=== PATIENT | male | born 1965 | race Caucasian/White ===

== ENCOUNTER 2017-02-27 10:29 | Day surgery (SDC) | payer MEDICARE, OTHER ==
--- NOTE | ~2017-02-27 | CN ---
Consultation Report [facility] [address] [place]. [address] NAME: SUDHEER ENCARNACION : 69 STATUS : [facility]#: [id number] AGE: 51 ADM/REG DATE : 02/27/17 MR#: [id number] REPORT SERV DATE: 02/28/17 DICTATED BY: VIDHI HUGHES DATE: 02/27/17 REPORT STATUS : Draft TRANSCRIBED BY: FRANKY DATE: 02/27/[address] CARLO MARTINEZ AT [facility]: THANK YOU FOR REQUESTING MY OPINION REGARDING EVALUATION AND MANAGEMENT OF MR. SUDHEER ENCARNACION' RIGHT LOWER LOBE AIRSPACE OPACITY. MR. ENCARNACION IS AN EXTREMELY PLEASANT, HIV POSITIVE AND HEP B POSITIVE GENTLEMAN WITH CD4 COUNT OF 1145 AND UNDETECTABLE VIRAL LOAD, WHO PRESENTS TO [facility] WITH AN ABNORMAL CT SCAN OF THE CHEST. THE PATIENT WAS UNDERGOING A WORKUP FOR LIVER AND KIDNEY DISEASE GIVEN HIS RISK FACTORS AND MEDICATIONS. DURING THIS PROCESS, HE HAD AN INCIDENTAL FINDING OF AN AIRSPACE OPACITY IN THE RIGHT LOWER LOBE, AND SUBSEQUENT CT SCAN OF THE CHEST PERFORMED ON 02/22/2017 DEMONSTRATED A 4.1 X 3.2 SOLID MASS-LIKE CONSOLIDATION ALONG THE RIGHT MAJOR FISSURE, DOME OF THE DIAPHRAGM. FINDINGS WERE SPECULATED TO EITHER BE FROM A FUNGAL BACTERIAL PRIMARY LUNG CANCER OR METASTATIC DISEASE, A PULMONARY MEDICINE CONSULTATION FOR NAVIGATIONAL BRONCHOSCOPY, BAL AND BIOPSY WERE RECOMMENDED. OTHER INCIDENTAL FINDINGS, INCLUDING CHOLELITHIASIS AND NEPHROLITHIASIS. THE PATIENT STATES THAT HE HAS NO SIGNIFICANT SHORTNESS OF BREATH. HE IS AT BASELINE. HE DOES HAVE TYPICAL EXERTIONAL SHORTNESS OF BREATH, WELL LOCALIZED TO THE CHEST, NONRADIATING, AND ALLEVIATED BY REST. DATE OF CONSULTATION: 02/27/2017 REVIEW OF SYSTEMS: A detailed 14-point review of systems was completed. Pertinent positives and negatives are listed above. PAST MEDICAL HISTORY: 1. Negative PPD on 01/20/2017. 2. Toxic status IgG negative in 2000. 3. RPR, nonreactive in 11/2012, GC negative in 11/2012, HCV antibody negative in 10/2010. 4. HIV infection with CD4 count as stated above. 5. HAART therapy including ATV/r/ABC/3TC. 6. Chronic type B viral infection with 3TC resistance based on virologic failure - failed TDF therapy due to renal insufficiency, on entecavir and adefovir. 7. Hyperlipidemia. 8. 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 9. Allergic rhinitis. 10.Bipolar disorder. 11.Generalized anxiety disorder. 12.Restless legs syndrome. PAST SURGICAL HISTORY: Status post rectal cancer removal. Consultation Report [facility] [id number] [place]. [address] NAME: USDHEER ENCARNACION : [birth year] STATUS : [facility]#: [id number] AGE: 51 ADM/REG DATE : 02/27/17 MR#: [id number] REPORT SERV DATE: 02/28/17 DICTATED BY: VIDHI HUGHES DATE: 02/27/17 REPORT STATUS : Draft TRANSCRIBED BY: FRANKY DATE: 02/27/17 ALLERGIES: ATAZANAVIR AND EMTRICITABINE AND TENOFOVIR. HOME MEDICATIONS: Reviewed and located in the paper chart. The patient is notably on clindamycin. FAMILY HISTORY: Diabetes. SOCIAL HISTORY: The patient lives in [place], but receives most of his care at [facility] at the [facility]. He had contracted HIV with unprotected MSM contact. The patient currently lives with his partner for many years. He is a disabled, but was prior worked as a counter waitress/waiter. He smokes at least half pack per week but has smoked for many years. He denies any significant alcohol or illicit drug abuse. PHYSICAL EXAMINATION: VITAL SIGNS: Reviewed and located in the paper chart. GENERAL: Acute distress, able to communicate in full paragraphs at a time. HEENT: Normocephalic and atraumatic. Pupils are equal, round, and reactive to light and accommodation. Posterior oropharynx is clear. NECK: No JVD. No LAD. Trachea midline. CARDIOVASCULAR: Regular rate and rhythm. S1 and S2 present. LUNGS: Coarse bilateral breath sounds. No end-expiratory wheezes. ABDOMEN: Nontender. Nondistended. Soft. Positive bowel sounds. EXTREMITIES: No clubbing, cyanosis, or edema. SKIN: No new rashes, lesions, or ulcers. PSYCHIATRIC: Alert and oriented x3. Appropriate mood and affect. Appropriate insight and judgment. NEUROLOGIC: 5/5 strength in upper and lower extremities. Cranial nerves 2 through 12 intact. Gait not tested. DTRs not performed. DIAGNOSTIC STUDIES: 1. CT scan of the chest performed on 02/22/2017 demonstrated of the right lower lobe solid appearing 4.1 x 3.2 mass involving the right major fissure, dome of the diaphragm, and areas of consolidation along the right lower lobe bronchi. Findings may represent an infection, primary lung cancer metastatic disease. 2. Cholelithiasis. 3. Nephrolithiasis. This CT scan was personally reviewed by me and I agree with the above interpretation. ASSESSMENT AND PLAN: Mr. Sudheer Encarnacion is an extremely pleasant 51-year-old gentleman with a significant past medical history of heavy tobacco abuse, hepatitis B active infection, and HIV positive, most recent CD4 count documented 1145 and anal squamous cell carcinoma, who presents to [facility] for formal evaluation of a right lower lobe airspace opacity. The patient was undergoing ultrasound for his kidney and liver disease and was found to have suspicious airspace opacity. Subsequent CT scan on 02/22/2017 confirmed a right lower lobe solid 4.1 x 3.2 cm mass. This represents to me more likely an airspace infiltrate or mass- Consultation Report [address] [address] NAME: SUDHEER ENCARNACION : 69 STATUS : [facility] PAT#: [id number] AGE: 51 ADM/REG DATE : 02/27/17 MR#: [id number] REPORT SERV DATE: 02/28/17 DICTATED BY: VIDHI HUGHES DATE: 02/27/17 REPORT STATUS : Draft TRANSCRIBED BY: MODCornel DATE: 02/27/17 like consolidation. The patient has no significant pulmonary complaints. The differential diagnosis could represent a malignant tumor or metastatic disease from his prior anal cell carcinoma or more likely an atypical infection or aspiration event. The patient has been placed on clindamycin prior to the procedure. At this point, we discussed in detail potential options for culture and biopsy including CT- guided needle biopsy, thoracic surgical biopsy, and EBUS and navigation bronchoscopy. After careful discussion of the risks, benefits, and alternatives to each of these procedures, we agreed to proceed forward with EBUS and navigation bronchoscopy. The patient is aware that the procedure is associated with potential life-threatening risks, including lung collapse, respiratory failure, and even . Given the location of the abnormality, this may be a difficult navigation bronchoscopy based on its position adjacent to the dome of the diaphragm as well as its peripheral nature. The patient would also likely be a difficult CT guided needle biopsy given its medial component abutting the medial aspect of the dome of the diaphragm. Nonetheless, the patient agreed to proceed forward. RECOMMENDATIONS: A summary of my recommendations are as follows: 1. Proceed with EBUS and navigation bronchoscopy for pathologic samples and cultures. 2. Follow up with Dr. Richards in the clinic. 3. Follow up with Dr. Martinez at [facility]. Thank you for allowing us to participate in Mr. Encarnacion' care. JAYNE/FRANKY Vidhi Hughes M.D. / [id number] CC: Mil Hayes
--- NOTE | ~2017-02-27 | EGD ---
EGD REPORT [facility] [address] [address] NAME: SUDHEER ENCARNACION : 69 STATUS : [facility]#: [id number] AGE: 51 ADM/REG DATE : 02/27/17 MR#: [id number] REPORT SERV DATE: 02/27/17 DICTATED BY: ADONAY HUGHES DATE: 02/27/17 REPORT STATUS : Draft TRANSCRIBED BY: [facility] DATE: 02/27/17 Pulmonology Patient Name: Sudheer Encarnacion Procedure Date: 02/27/2017 12:50 PM Date of : 1965 Attending MD: BLU HUGHES MD Procedure Date No Time: 02/27/2017 Procedure: EBUS/JAZZY BRONCHOSCOPY Indications: Chronic Hepatitis B and HIV Providers: BLU HUGHES MD Referring MD: Kenzie Martinez Medicines: Lidocaine 2% 20 mL Complications: No immediate complications Procedure: Pre-Anesthesia Assessment: - A History and Physical has been performed. Patient meds and allergies have been reviewed. The risks and benefits of the procedure and the sedation options and risks were discussed with the patient. All questions were answered and informed consent was obtained. Patient identification and proposed procedure were verified prior to the procedure by the physician and the nurse in the pre-procedure area in the procedure room. Mental Status Examination: alert and oriented. Airway Examination: normal oropharyngeal airway. Respiratory Examination: clear to auscultation and poor air movement. CV Examination: normal and RRR, no murmurs, no S3 or S4. ASA Grade Assessment: IV - A patient with severe systemic disease that is a constant threat to life. After reviewing the risks and benefits, the patient was deemed in satisfactory condition to undergo the procedure. The anesthesia plan was to use general anesthesia. Immediately prior to administration of medications, the patient was re-assessed for adequacy to receive sedatives. The heart rate, respiratory rate, oxygen saturations, blood pressure, adequacy of pulmonary ventilation, and response to care were monitored throughout the procedure. The physical status of the patient was re-assessed after the procedure. After obtaining informed consent, the BF [id number] was introduced through the mouth, via the endotracheal tube (the patient was intubated for the procedure) and advanced to the tracheobronchial tree. The Bronchoscope was introduced through the mouth, via the endotracheal tube (the patient was intubated for the procedure) and advanced to the tracheobronchial tree. EGD REPORT [address] [address] NAME: SUDHEER ENCARNACION : 69 STATUS : [facility] PAT#: [id number] AGE: 51 ADM/REG DATE : 02/27/17 MR#: [id number] REPORT SERV DATE: 02/27/17 DICTATED BY: ADONAY HUGHES DATE: 02/27/17 REPORT STATUS : Draft TRANSCRIBED BY: [facility] DATE: 02/27/17 Findings: The endotracheal tube is in good position. The visualized portion of the trachea is of normal caliber. The mikey is sharp. The tracheobronchial tree was examined to at least the first subsegmental level. Bronchial mucosa and anatomy are normal; there are no endobronchial lesions, and no secretions. EBUS TBNA of lymph node level 11L x 4 passes for cytology EBUS TBNA of lymph node level 4L x 4 passes for cytology EBUS TBNA of lymph node level 7 x 4 passes for cytology EBUS TBNA of lymph node level 4R x 4 passes for cytology EBUS TBNA of lymph node level 11R x 4 passes for cytology Using SuperDimension Edge catheter 180, peripheral probe EBUS 17s, and fluoroscopy, I performed the following biopsies: RLL mass-like consolidation transbronchial needle aspirates x 4 passes for cytology and cultures RLL mass-like consolidation transbronchial brush biopsy x 2 pass for cytology and cultures RLL mass-like consolidation transbronchial forcep biopsies x 7 passes for histopathology and cultures Bronchoalveolar lavage was performed in the right lower lobe of the lung and sent for cell count, cytology, bacterial culture, viral smears \T\ culture, and fungal and AFB analysis. 180 mL of fluid were instilled. 30 mL were returned. The return was cellular. Impression: Rapid On-Site Evaluation (IRENE): Preliminary cytology is suggestive of benign changes (final results are pending). Recommendation: - Await test results. - Chest X-ray. - Follow up in clinic. Attending Participation: I personally performed the entire procedure. BLU HUGHES MD 02/27/2017 2:03 PM This report has been signed electronically. Number of Addenda: 0 Note Initiated On: 02/27/2017 12:50 PM [address] [address]
[~2017-02-27 10:29] MED LIST: BARACLUDE1 MG PO; BEN25 PO; CLEOCIN300 MG PO; EPZICOM 600/3001 TAB PO; HEPSERA10 MG PO; ISENTRESS400 MG PO; KLONO5; KLONO5 PO; MULTIPLE VIT PO; NICOTROL INH; REMERON45 MG PO; REQUIP1 PO; SEROQUEL400 MG PO; TRAZ100 PO
[2017-02-27 10:51] LABS: BASOPHILS 0.3 %; BASOPHILS ABSOLUTE 0.04 10/3/uL (0.0-0.16); EOSINOPHILS 3.3 %; EOSINOPHILS ABSOLUTE 0.38 10/3/uL (0.0-0.53); HEMATOCRIT 44.8 % (40.0-51.0); HEMOGLOBIN 15.6 g/dL (13.6-17.8); IMMATURE GRANULOCYTES 1.2 %; IMMATURE GRANULOCYTES ABSOLUTE 0.14 10/3/uL (0.0-0.11); LYMPHOCYTES 24.8 %; LYMPHOCYTES ABSOLUTE 2.85 10/3/uL (0.67-4.30); MANUAL DIFF NO %; MEAN CORPUS HGB CONC 34.8 g/dL (32.0-36.0); MEAN CORPUSCULAR HEMOGLOB 34.4 pg (26.0-34.0); MEAN CORPUSCULAR VOLUME 98.9 fL (80-100); MEAN PLATELET VOLUME 10.7 fL (9.2-13.0); MONOCYTES 8.8 %; MONOCYTES ABSOLUTE 1.01 10/3/uL (0.21-1.20); NEUTROPHILS 61.6 %; NEUTROPHILS ABSOLUTE 7.06 10/3/uL (2.02-8.40); PLATELET COUNT 262 10/3/uL (150-400); RBC DISTRIBUTION WIDTH 13.2 % (12.0-16.0); RED CELL COUNT 4.53 10/6/uL (4.7-6.1); WHITE BLOOD CELLS 11.5 10/3/uL (4.5-10.5)
[2017-02-27 10:58] LABS: INTERNATIONAL NORMAL RATI 1.2 UNITS (-); PARTIAL THROMBO TIME 32.2 SEC (22.5-37.2); PROTIME (NOT ORD) 14.6 SEC (12.0-14.5)
[2017-02-27 11:08] LABS: ALBUMIN 3.9 G/DL (3.5-5.0); ALKALINE PHOSPHATASE 108 U/L (45-117); BUN (BLOOD UREA NITROGEN) 12 MG/DL (6-23); CALCIUM, SERUM 8.7 MG/DL (8.5-10.4); CHLORIDE, SERUM 109 MMOL/L (96-112); CO2 (CARBON DIOXIDE) 25 MMOL/L (24-34); CREATININE 1.11 MG/DL (0.70-1.30); GFR AFRICAN AMERICAN 90 ML/MIN (>=60); GFR NON AFRICAN AMERICAN 78 ML/MIN (>=60); GLUCOSE, SERUM 96 MG/DL (60-99); POTASSIUM, SERUM 4.2 MMOL/L (3.5-5.3); SGOT(AST) 12 U/L (5-40); SGPT(ALT) 21 U/L (5-65); SODIUM, SERUM 141 MMOL/L (135-148); TOTAL BILIRUBIN 0.5 MG/DL (0-1.2); TOTAL PROTEIN 7.5 G/DL (6.0-8.5)
[2017-02-27 11:09] LABS: DIRECT BILIRUBIN < 0.1 MG/DL (0.0-0.4); INDIRECT BILIRUBIN(NOT ORDER) 0.4 MG/DL (0.1-0.9)
[2017-02-27 16:15] LABS: BD FL LYMPH (NOT ORD) 26 %; BD FL SOURCE (NOT ORD) BAL--RLL; BF BASO (NOT OF) 0 %; BF LARGE MONONUCLEAR 63 %; BF TOTAL CELL CT (NOT ORD 246 /MM3; BODY FLUID EOS (NOT ORD) 0 %; BODY FLUID RBC (NOT ORD) 10000 /MM3; BODY FLUID SEG (NOT ORD) 11 %
== END 2017-02-27 16:13 | disposition home or self-care (01) ==
LOC: DMU 10:29
PROVIDERS: Anesthesiology; Internal Medicine
PROC: 07974ZX Drainage of Thorax Lymphatic, Percutaneous Endoscopic Approach, Diagnostic (ICD-10-PCS; principal; 2017-02-27 12:00)
PROC: BB4CZZZ Ultrasonography of Mediastinum (ICD-10-PCS; 2017-02-27 12:00)
PROC: 0BBF8ZX Excision of Right Lower Lung Lobe, Via Natural or Artificial Opening Endoscopic, Diagnostic (ICD-10-PCS; 2017-02-27 12:00)
PROC: 0B968ZX Drainage of Right Lower Lobe Bronchus, Via Natural or Artificial Opening Endoscopic, Diagnostic (ICD-10-PCS; 2017-02-27 12:00)
PROC: 0B9F8ZX Drainage of Right Lower Lung Lobe, Via Natural or Artificial Opening Endoscopic, Diagnostic (ICD-10-PCS; 2017-02-27 12:00)
DX: R91.8 Other nonspecific abnormal finding of lung field (principal); B18.1 Chronic viral hepatitis B without delta-agent; Z21 Asymptomatic human immunodeficiency virus [HIV] infection status; E78.5 Hyperlipidemia, unspecified; G25.81 Restless legs syndrome; F31.9 Bipolar disorder, unspecified; F41.1 Generalized anxiety disorder; F17.210 Nicotine dependence, cigarettes, uncomplicated; Z98.890 Other specified postprocedural states; Z85.048 Personal history of other malignant neoplasm of rectum, rectosigmoid junction, and anus; Z83.3 Family history of diabetes mellitus; Z88.3 Allergy status to other anti-infective agents; Z79.2 Long term (current) use of antibiotics; Z79.899 Other long term (current) drug therapy
CPT/HCPCS: 71010; 80048; 80076; 85025; 85610; 85730; 87015; 87070; 87101; 87102; 87116; 87205; 88112; 88172; 88173; 88305; 88312; 88333; 89051; A9270-GY; C1725; C1769; J2250; J2405; J2710; J3010